=== PATIENT | male | born 1985 | race African-American/Black ===

== ENCOUNTER 2023-02-08 00:04 | Emergency (ER) | payer MEDICAID ==
[~2023-02-08] VITALS: Ht 185.4 cm; Wt 66.0 kg
[2023-02-08 01:34] VITALS: O2SAT 100
[2023-02-08] MEDS ORDERED: ACETAMINOPHEN 325MG TABLET PO ONE (02:00)
[2023-02-08] MEDS ORDERED: MORPHINE SULFATE 10 MG/ML CPJ IV ONE (03:00)
[2023-02-08] MEDS ORDERED: LIDOCAINE HCL 1% 20ML VIAL (Pyxis) INJ INFIL ONE (03:00)
[2023-02-08] MEDS ORDERED: T3 PO (04:18)
[2023-02-08 04:20] VITALS: BP 139/81
[2023-02-08 04:34] VITALS: PULSE 63; RESP 17; TEMP 98.6
== END 2023-02-08 04:44 | disposition home or self-care (01) ==
LOC: ER 04:16
DX: S63.250A Unspecified dislocation of right index finger, initial encounter (principal); Z98.890 Other specified postprocedural states; X58.XXXA Exposure to other specified factors, initial encounter; Y93.89 Activity, other specified; Y92.89 Other specified places as the place of occurrence of the external cause; Y99.8 Other external cause status
CPT/HCPCS: 73130; 73140; 26700; 96374; 99284; J2270; Z7610 ×3

== ENCOUNTER 2024-06-18 13:43 | Emergency (ER) | payer MEDICAID, OTHER ==
[~2024-06-18] VITALS: Ht 185.4 cm; Wt 70.0 kg
[~2024-06-18 13:43] MED LIST: T3 PO
[2024-06-18 13:47] VITALS: O2SAT 100
[2024-06-18 14:04] VITALS: BP 127/94; PULSE 83; RESP 16; TEMP 98.5; O2SAT 100
[2024-06-18] MEDS ORDERED: BACITRACIN ZINC OINT UDPKT TOP ONE (14:15)
[2024-06-18] MEDS ORDERED: LIDOCAINE HCL 1% 20ML VIAL INFIL ONE (14:15)
[2024-06-18] MEDS ORDERED: TETANUS, DIPHTHERIA, PERTUSSIS VAC/PF 0.5ML (>10YR OLD) IM ONE (14:15)
[2024-06-18] MEDS: BACITRACIN ZINC OINT UDPKT TOP NR (19:14)
[2024-06-18] MEDS: LIDOCAINE HCL 1% 20ML VIAL INFIL NR (19:14)
[2024-06-18] MEDS: TETANUS, DIPHTHERIA, PERTUSSIS VAC/PF 0.5ML (>10YR OLD) IM ONE (19:17)
== END 2024-06-18 19:20 | disposition home or self-care (01) ==
LOC: ER 13:43
DX: S61.011A Laceration without foreign body of right thumb without damage to nail, initial encounter (principal); X58.XXXA Exposure to other specified factors, initial encounter; Y93.89 Activity, other specified; Y92.89 Other specified places as the place of occurrence of the external cause; Y99.8 Other external cause status
CPT/HCPCS: 99283; 90715; 12001; 90471; J3490